=== PATIENT | male | born 1970 | race Caucasian/White ===

== ENCOUNTER → 2017-09-04 | Outpatient (CLI) | payer MEDICAID ==
[~2017-09-04] MED LIST: BENTYL20 M1 PO; TRAMADOL50 M1 PO
--- NOTE | 2017-09-04 11:59 | RADIOLOGY REPORT PS360 ---
PROCEDURE: 2-D M-mode and color Doppler study INDICATIONS FOR THE TEST: Chest painX COPD Heart Murmur Tobacco Smoking Palpitations Fatigue Syncope Edema Hypertension Diabetes Mellitus Rheumatic Fever SOBXDOE Obesity Hyperlipidemia Family History HD Additional History MVP PATIENT INFORMATION HEIGHT: 70 WEIGHT:160 GENDER: Male B/P:118/83 2-D/M-MODE INTERPRETATION: 2-D MEASUREMENTS OBSERVED VALUES IN CMS Right Ventricular Dimension (RVDd) 2.2 Interventricular Septum (Thickness)(IVsd) .8 Left Ventricular Internal Dimensions(LVIDd) 4.5 Left Ventricular Posterior Wall (Thickness)(LVPWd) .7 Aortic Root 3.6 Aortic Cusp Separation 2.2 Left Atrial Dimensions (LAD) 3.9 2D 1. Left atrium is normal size, left ventricle is normal size, there is no concentric left ventricular hypertrophy, visually estimated ejection fraction 55% with no obvious regional wall motion abnormality. 2. The right atrium and right ventricle are normal size and contractility. 3. The aortic root is qualitatively mildly enlarged, aortic valve appears to be trileaflet, there is no aortic stenosis. 4. The mitral valve leaflets are minimally thickened, there is mild prolapse of both anterior and posterior mitral leaflet. 5. The tricuspid valve is structurally normal. 6. The pulmonic valve is poorly visualized. 7. No significant pericardial effusion noted. DOPPLER INTERROGATION: Doppler interrogation of the aortic, mitral and tricuspid valvular presence of trace aortic, mild mitral and tricuspid regurgitation, tricuspid regurgitant jet velocity is insufficient for calculation of the right ventricular systolic pressure, diastolic parameters are inconclusive. CONCLUSION: 1. Normal left ventricular size, preserved left ventricular systolic function, visually estimated ejection fraction 55% with no obvious regional wall motion abnormality. Diastolic parameters are inconclusive. 2. Qualitatively mildly enlarged aortic root, aortic valve appears to be trileaflet, there is no aortic stenosis, there is trace aortic insufficiency. 3. Mild mitral valve prolapse associated with mild mitral regurgitation. 4. There is no significant pericardial effusion noted.
== END ==
LOC: RT 08:19
DX: I34.1 Nonrheumatic mitral (valve) prolapse (principal)